=== PATIENT | male | born 1950 | race Caucasian/White ===

== ENCOUNTER 2024-12-23 09:31 | Day surgery (SDC) | payer MEDICARE ==
[~2024-12-23] VITALS: Ht 175.3 cm; Wt 75.0 kg
[2024-12-23] VITALS (16 sets, daily range): BP systolic 100–159; BP diastolic 55–85
[~2024-12-23 09:31] MED LIST: ATOR10; FISH OIL 1,0001 EA10 PO; Lactated Ringer's 1,000 ML IV SCH; MULVITA PO; OMEP20ER PO; Vitamin D1000 UNI1; propofoL 40 ML IV ONE
--- NOTE | 2024-12-23 10:29 | NUR ---
12/23/24 1029 Karolina Caballero CONFIRMED AND REVIEWED H&P, MEDCICATIONS, ALLERGIES, MEDICAL HISTORY, RESPIRATORY HISTORY, VITAL SIGNS, 3-LEAD EKG, CONSENTS, AND PHYSICIAN ORDERS. PATIENT CONFIRMS NPO STATUS AND AGREES WITH SCHEDULED PROCEDURE. MONITOR INTACT WITH CONTINUOUS PULSE OXIMETRY, CAPNOGRAPHY, 3-LEAD EKG, INTERMITTENT BP. SUPPLEMENTAL O2 TO BE TITRATED THROUGHOUT PROCEDURE TO MAINTAIN O2 SATURATION ABOVE 90%. PATIENT DETERMINED TO BE ASA APPROPRIATE FOR PROPOFOL SEDATION PRIOR TO START OF PROCEDURE BY DR. [id number]
--- NOTE | 2024-12-23 11:29 | NUR ---
Discharge instructions reviewed with patient. Patient verbalizes understanding. Copy given to patient to take home. Patient States Post-Procedure ride home has been arranged. Discharged via wheelchair to private car for ride home.
== END 2024-12-23 11:30 | disposition home or self-care (01) ==
LOC: ORSCMMR 09:31 → ORD 10:30 → ORSCMMR 10:30
PROVIDERS: Internal Medicine Gastroenterology
PROC: 0DBK8ZX Excision of Ascending Colon, Via Natural or Artificial Opening Endoscopic, Diagnostic (ICD-10-PCS; principal; 2024-12-23 10:30)
PROC: 0DBL8ZX Excision of Transverse Colon, Via Natural or Artificial Opening Endoscopic, Diagnostic (ICD-10-PCS; principal; 2024-12-23 10:30)
DX: Z12.11 Encounter for screening for malignant neoplasm of colon (principal); Z86.0100 Personal history of colon polyps, unspecified; D12.2 Benign neoplasm of ascending colon; K63.5 Polyp of colon; D12.3 Benign neoplasm of transverse colon; K57.30 Diverticulosis of large intestine without perforation or abscess without bleeding; E78.00 Pure hypercholesterolemia, unspecified; K21.9 Gastro-esophageal reflux disease without esophagitis; Z79.899 Other long term (current) drug therapy
CPT/HCPCS: 88305; J2704; J7120